=== PATIENT | female | born 1965 | race Caucasian/White ===

== ENCOUNTER 2016-08-04 23:32 | Emergency (ER) | payer SELFPAY ==
--- NOTE | 2016-08-05 01:30 | ED ORDER SUMMARY ---
..... Patient: BENNY MARC OrderSheet [facility] VisitID: [id number] [place] [address] 51y, F Registration Date/Time: 08/04/2016 ORDER SHEET Weight: 79.3 kg Allergies: No Known Drug Allergy GENERAL ORDERS: EKG - ER Stat (00:05 08/05/2016 EInderbitzen R.N. verbal order read back to Cirilo Coyne) (0:07 CHagerty ER Lens Dotter) Chest 2V Urgent (00:07 08/05/2016 Cirilo Coyne) (Ack 0:14 CHagerty ER Lens Dotter) (0:23 GUnger) Hooker Off (Continuous) (CP) (00:08 08/05/2016 Cirilo Coyne) (Ack 0:14 CHagerty ER Lens Dotter) (0:28 EInderbitzen R.N.) CBC w Diff Urgent (00:08/05/2016 Cirilo Coyne) (Ack 0:14 CHagerty ER Lens Dotter) (0:28 EInderbitzen R.N.) CMP Urgent (00:08/05/2016 Cirilo Coyne) (Ack 0:14 CHagerty ER Lens Dotter) (0:28 EInderbitzen R.N.) UA-Culture if indicated Urgent (00:08/05/2016 Cirilo Coyne) (Ack 0:14 CHagerty ER Lens Dotter) PT with INR Urgent (00:08/05/2016 Cirilo Coyne) (Ack 0:14 CHagerty ER Lens Dotter) (0:28 EInderbitzen R.N.) D-Dimer Urgent (00:08/05/2016 Cirilo Coyne) (Ack 0:14 CHagerty ER Lens Dotter) (0:28 EInderbitzen R.N.) Troponin-I Urgent (00:08/05/2016 Cirilo Coyne) (Ack 0:14 CHagerty ER Lens Dotter) (0:28 EInderbitzen R.N.) Lipase Urgent (00:08/05/2016 Cirilo Coyne) (Ack 0:14 CHagerty ER Lens Dotter) (0:28 EInderbitzen R.N.) Pulse oximeter (00:09 08/05/2016 Cirilo Coyne) (Ack 0:14 CHagerty ER Lens Dotter) (0:28 EInderbitzen R.N.) MEDICATION ORDERS: GI Cocktail WHITE PO 30 mL (NOW) (00:08 08/05/2016 Cirilo Coyne) (0:18 EInderbitzen R.N.) Aspirin PO 325 mg (Do not crush or chew, NOW) (01:23 08/05/2016 Cirilo Coyne) (Ack 1:24 RCollier R.N.) (1:29 RCollier R.N.) NitroGLYCERIN SL 0.2 mg (once now) (01:35 08/05/2016 Cirilo Coyne) (Ack 1:36 RCollier R.N.) (2:25 RCollier R.N.) IV FLUIDS: Zofran IV 4 mg (NOW) (00:08 08/05/2016 Cirilo Coyne) (0:17 EInderbitzen R.N.) IV Saline Lock (00:09 08/05/2016 Cirilo Coyen) (0:19 EInderbitzen R.N.) ORDER SHEET NOTES: [Electronically signed by Ariadna Roman R.N. (02:08/05/2016)] [Electronically signed by Paul Molina Dr. (17:19 08/08/2016)] [Electronically locked/signed by Ariadna Roman R.N. (08/05/2016)]
--- NOTE | 2016-08-05 01:30 | ED NURSING NOTES ---
Clinical Report - Nurses [facility] [address] [place] [address] 08/04/2016 23:32 Patient: BENNY MARC TRIAGE Triage time 23:38 Aug 04 2016. Acuity: LEVEL 3. Chief Complaint: (short of breath, chest tightness, right subcostal pain). 23:38 08/04/16. STANLEY COMA SCORE: Stanley Coma Scale: 15- eyes open spontaneously (4); best verbal response- oriented x 4 (5); best motor response- obeys commands (6). --23:43 Minna Pop R.N. 23:38 08/04/16. BP: 146/83. HR: 72. RR: 22. O2 saturation: 100%. Temp: 98.2 F. Pain level now: 01/17. --23:43 Minna Pop R.N. Weight: 79.3 kg. Height/Length: 66 inches Per Patient. BMI: 28.2. --23:37 Minna Pop R.N. Medications Albuterol Sulfate HFA Inhalation. --23:40 Minna Pop R.N. Motrin. --23:41 Minna Pop R.N. Medication/allergy information source: the patient. --23:43 Minna Pop R.N. Allergies No Known Drug Allergy. --23:40 Minna Pop R.N. History Arrived by private vehicle. Historian: patient. Accompanied by family. Onset. (a few days, worse tonight). She has had difficulty breathing. No fever, weakness or cough. Denies muscle aches. Treatment ORDERING BOX OPERATOR: None. PAST MEDICAL HX: Immunizations: seasonal influenza. Last normal menstrual period now. SOCIAL HX: Smoker- current status unknown (cigarette). Occasional alcohol use. No drug use. ABUSE ASSESSMENT: No report of abuse. SELF HARM ASSESSMENT: A self harm assessment was performed. The patient answered "no" to the question "Have you recently felt down, depressed, or hopeless?", "Have you noticed less interest or pleasure in doing things?", "Do you have thoughts of harming or killing yourself?", "Are you here because you tried to hurt yourself?", "Have you ever tried to hurt yourself before today?", "Have you recently had thoughts about harming or killing others?" and "Do you have any dangerous items in your possession?". --23:43 Minna Pop R.N. PROBLEMS: Abdominal Pain. Headache. Chronic Headache. Atypical Chest Pain. Cardiomegaly. Pulmonary Hypertension. Arthritis. --23:41 Minna Pop R.N. ADDITIONAL SURGERIES: . Lumpectomy of breast. --23:41 Minna Pop R.N. Interventions ID band on patient. --23:43 Minna Pop R.N. PHYSICAL ASSESSMENT 00:32 08/05/16. Ambulatory to room. GENERAL / NEURO / PSYCH: Alert. Oriented X 4. HEENT: Pupils equal, round and reactive to light. No facial asymmetry noted. Mucous membranes are pink. RESPIRATORY: Respirations not labored. Chest nontender. Breath sounds within normal limits. CVS: Normal sinus rhythm noted. Pulses within normal limits. GI / : Abdomen soft and nontender and normal bowel sounds. SKIN: Skin intact. Skin is warm and dry. Normal skin turgor. --00:32 Minna Pop R.N. NURSING PROGRESS NOTES 23:53 08/04/2016 Site #1 started via IV in the right antecubital space with an 20g angiocath, with aseptic technique; one attempt. Blood drawn: rainbow set. Labeled in the presence of the patient and sent to the lab. Saline lock flushed with 10 mL saline. --23:58 Minna Pop R.N. 23:57 08/04/16. The initial plan of care for this patient includes an assessment with efforts to address the presence of pain. This plan of care was discussed with the patient. monitoring analyst, pulse oximeter and NIBP monitor placed on patient; threat monitoring analyst- Lead II; monitor alarms on. Patient gowned. Two patient identifiers checked. Call light placed in reach. Side rails up x 1. Bed placed in lowest position. Brakes of bed on. Patient ready for evaluation. --23:57 Minna Pop R.N. EKG time: (2354 PM). EKG was ordered, performed by a tech and shown to the ED physician. --23:59 Elizabeth Dimas 00:15 08/05/2016 Zofran (Ondansetron HCl) IVP 4 mg given over 1 minute(s) via site #1. Allergies verified and confirmed 5 rights. IV patency established. IV site checked: no pain, redness, or swelling. IV flushed thoroughly pre- and post-medication administration. IVP given by RN. --00:17 Minna Pop R.N. 00:16 08/05/2016 GI COCKTAIL WHITE (Simethicone) PO Oral Suspension 30 mL given. Allergies verified and confirmed 5 rights. --00:18 Minna Pop R.N. 00:20 08/05/16. Patient transported to radiology by stretcher. (AND RETURNED). --00:20 Minna Pop R.N. 00:33 08/05/16. BP: 107/60. HR: 65. RR: 18. O2 saturation: 100%. Pain level now 5/10. --00:33 Minna Pop R.N. 00:33 08/05/16. Cardiac rhythm: normal sinus rhythm. monitoring analyst and NIBP monitor placed on patient; threat monitoring analyst- Lead II; monitor alarms on. Reassessment after medication administered. She has had no adverse reaction. Overall patient status is the same- she states feels the same. --00:33 Minna Pop R.N. Care transferred and report received. --01:25 Ariadna Roman R.N. 01:29 08/05/2016 Aspirin PO Tablets 325 mg given. Allergies verified and confirmed 5 rights. --01:29 Ariadna Roman R.N. 01:45- pt ambulates to restroom and back to bed. --01:48 Ariadna Roman R.N. The patient is calm and resting quietly. --01:58 Ariadna Roman R.N. 02:15 08/05/2016 Nitroglycerin SL Tablets 0.2 mg given. Allergies verified and confirmed 5 rights. --02:25 Ariadna Roman R.N. DISPOSITION / DISCHARGE 01:46 08/05/16. BP: 109/52. HR: 65. RR: 20. O2 saturation: 100%. Temp: deferred. Irizarry-Jamison pain scale: 10/18. --01:50 Ariadna Roman R.N. Report was given to a nurse in person. Report included patient's care, treatment, medications, reviewed medication reconcilliation, and condition (including any recent changes or anticipated changes). All questions were answered. Report was acknowledged and care was transferred. (transformation manager). --02:15 Ariadna Roman R.N. Report was given to a nurse via a phone call. Report included patient's care, treatment, medications, reviewed medication reconcilliation, and condition (including any recent changes or anticipated changes). All questions were answered. Report was acknowledged. (to [facility]). --02:24 Ariadna Roman R.N. Departure time: 02:25. --02:25 Ariadna Roman R.N. Locked/Released at 08/05/2016 2:26 by Ariadna Roman R.N.
--- NOTE | 2016-08-05 01:30 | ED CLINICAL REPORT ---
Clinical Report - Physicians/Mid Levels [facility] [address] [place] [address] 08/04/2016 23:32 Patient: BENNY MARC Arrived- By private vehicle. Historian- patient. HISTORY OF PRESENT ILLNESS Chief Complaint: CHEST PAIN. At its maximum, severity described as moderate. When seen in the E.D., severity described as moderate. Modifying factors- worsened by deep breaths. Not worsened by exertion. Not relieved by anything. This started past few days and is still present and worsening. It was abrupt in onset and has been intermittent but is not gone now. It is described as tightness and it is described as located in the right chest and central chest area and radiating to the jaw and chest. The patient has had nausea. No vomiting, difficulty breathing or diaphoresis. (hx of pulmonary HTN. Reports no hx of hemoptysis, leg swelling, hx of DVT/PE, recent trauma or hormone replacement.). Similar symptoms previously: None. Recent medical care: Not recently seen/assessed. REVIEW OF SYSTEMS No fever, chills, pedal edema, calf pain or fainting episodes. No headache or sore throat. All systems otherwise negative, except as recorded above. PAST HISTORY See nurses notes. SOCIAL HISTORY Smoker- current status unknown. No alcohol use or drug use. Is a local resident. FAMILY HISTORY History of heart disease in first-degree relative (mother and sibling). ADDITIONAL NOTES The nursing notes have been reviewed. PHYSICAL EXAM Vital Signs: 08/04/2016 23:38 BP: 146/83. HR: 72. RR: 22. O2 saturation: 100%. Temp: 98.2 F. Pain level now: 7/10. Blood pressure normal. Oxygen saturation normal. Appearance: Alert. Oriented X3. No acute distress. Eyes: Pupils equal, round and reactive to light. Eyes normal inspection. ENT: Ears normal. Nose normal. Pharynx normal. Neck: Normal inspection. Neck supple. CVS: Normal heart rate and rhythm. Heart sounds normal. Pulses normal. Respiratory: No respiratory distress. Breath sounds normal. Chest nontender. No rales, rhonchi or wheezes. Abdomen: Soft and nontender. Bowel sounds normal. Back: Normal external inspection. Skin: Skin warm and dry. Normal skin color. No rash. Normal skin turgor. Extremities: Extremities exhibit normal ROM. No lower extremity edema. LABS, X-RAYS, AND EKG EKG: No acute process. No acute ischemia. Normal EKG. Normal sinus rhythm. Rate: 72. Normal P waves. Normal CIARAN. Normal QRS complex. Normal axis. Normal ST and T waves, QT and QTc. The study has been interpreted contemporaneously by me. The study has been independently viewed by me. The EKG appears to be a good tracing. Chest X-ray: No acute disease. Normal lung markings present. Normal heart size. No infiltrate. Views: PA and lateral. The X-rays were independently viewed by me and interpreted contemporaneously by me. Laboratory Tests: CBC w Diff: (ALBIN: 08/05/2016 00:09) ( [facility] 08/05/2016 00:14) Final results Test Result Flag Units (Reference) WHITE BLOOD COUNT 8.0 K/uL (4.5-11.5) RED BLOOD COUNT 4.41 M/uL (4.00-5.20) HEMOGLOBIN 13.7 gm/dL (12.0-16.0) HEMATOCRIT 41.4 % (36.0-46.0) MEAN CELL VOLUME 94 fL (80-100) MEAN CORPUSCULAR HGB 31 pg (26-34) MEAN CORPUSCULAR HGB CONC 33 g/dL (31-37) RED CELL DISTRIBUTION WIDTH 12.4 % (11.6-14.8) PLATELET COUNT 221 K/uL (150-400) NEUTROPHIL % 49.3 L % (50-75) LYMPH % 39.7 % (25-40) MONO % 9.0 % (3-14) EOSINOPHIL % 1.5 % (0-4) BASOPHIL % 0.5 % (0-2) PT with INR: (ALBIN: 08/05/2016 00:09) ( [facility] 08/05/2016 00:24) Final results Test Result Flag Units (Reference) INR 0.9 (0.8-1.2) Low Intensity Therapy: INR 1.5-2.0 PT range 18.5-23.1Mod.Intensity Therapy: INR 2.0-3.0 PT range 23.1-31.5High Intensity Therapy: INR 2.5-3.5 PT range 27.4-35.5High Intensity Therapy 2: INR 3.0-4.0 PT range 31.5-39.3 D-DIMER QUANTITATIVE 0.35 ug/mLFEU (0.27-0.52) The primary value of this quantitative assay relates toits negative predictive value (i.e. exclusion) of pulmonaryembolism/deep vein thrombosis/DIC.Elevated levels of d-dimer may also occur with:, age, cancer, inflammation, liver disease,post-op, infection, hematoma, coronary disease, peripheralarteriopathy, bleeding disorders and thrombolytic treatment.Results should be correlated with other clinical andradiological data.Testing Methodology: Latex Immunoassay CMP: (ALBIN: 08/05/2016 00:09) ( MsgRcvd 08/05/2016 00:51) Final results Test Result Flag Units (Reference) GLUCOSE 104 mg/dL (70-110) BUN 7 mg/dL (7-18) CREATININE 0.7 mg/dL (0.6-1.3) Estimated GFR >60 mL/min Estimated GFR- >60 mL/min Note: Persistent reduction over 3 months in eGFR<60 mL/min/1.73 m2 defines CKD. Patients with eGFR values>=60 mL/min/1.73 m2 may also have CKD if evidence ofpersistent proteinuria. Additional information may be foundat www.kidney.org. SODIUM 139 mmol/L (136-145) POTASSIUM 3.4 L mmol/L (3.5-5.1) CHLORIDE 104 mmol/L (98-107) CARBON DIOXIDE 28 mmol/L (21-32) CALCIUM 8.4 L mg/dL (8.5-10.1) TOTAL PROTEIN 6.5 g/dL (6.4-8.2) ALBUMIN 3.6 g/dL (3.3-5.0) BILIRUBIN, TOTAL 0.3 mg/dL (0.0-1.0) ALKALINE PHOSPHATASE 39 L U/L (46-116) AST (SGOT) 16 U/L (15-37) ALT (SGPT) 28 U/L (12-78) LIPASE 213 U/L (73-393) TROPONIN I 0.11 ng/mL (0.00-1.5) TROPONIN REFERENCE RANGE:<0.1 NEGATIVE0.1-1.5 INDETERMINANT>1.5 POSITIVE . PROGRESS AND PROCEDURES Course of Care: the patient is a pleasant 51-year-old female with past medical history significant for high cholesterol, pulmonary hypertension, smoking, and family history of cardiac disease presenting for evaluation of chest pain. The patient is resting in bed and in no acute distress. Differential diagnosis at this time includes pulmonary embolism, acute myocardial infarction, pneumothorax, or thoracic aortic dissection. Patient will be evaluated with d-dimer, troponin, complete blood cell count, chest x-ray, EKG. Medication for her discomfort and nausea has been ordered. Patient is agreeable to the treatment and plan. Initial workup shows patient with normal EKG. Chest x-ray does not show any signs of acute consolidation or pneumothorax. Mediastinum is not widened. No apical capping. Blood work is still pending at this time. Blood work is remarkable for an indeterminate troponin at 0.11. Rest of the patient's workup is otherwise unremarkable. Potassium is slightly low at 3.4. No signs of EKG changes. White blood cell count and a d-dimer noted to be normal. With normal d-dimer, do not feel patient has pulmonary embolism or thoracic dissection. Spoke with cardiology about patient's indeterminant troponin and chest pain here in the emergency department. The patient will be transferred for further management and workup of her chest pain and indeterminate troponins. Had spoken to the hospitalist and cardiology over at [facility]. Appropriate bed and availability obtained. Informed written consent for transfer obtained. At the time of transfer, patient was stable. Vital signs are unremarkable. No further recommendations noted from cardiology. Because of the patient's indeterminant troponin, cardiology did recommend starting anticoagulation at this point in time. An aspirin has been given already. the patient was transferred without Complications. Critical care performed (70 minutes). Time is exclusive of separately billable procedures. Time includes: direct patient care, patient reassessment, coordination of patient care, interpretation of data (laboratory data and chest xrays), review of patient's medical records, medical consultation and documentation of patient care. Consult obtained from cardiology. (Electronically signed by Paul Molina Dr. 08/08/2016 17:19)
--- NOTE | 2016-08-05 01:30 | ED NURSING NOTES ---
Clinical Report - Nurses [facility] [address] [place] [address] 08/04/2016 23:32 Patient: BENNY MARC TRIAGE Triage time 23:38 Aug 04 2016. Acuity: LEVEL 3. Chief Complaint: (short of breath, chest tightness, right subcostal pain). 23:38 08/04/16. STANLEY COMA SCORE: Stanley Coma Scale: 15- eyes open spontaneously (4); best verbal response- oriented x 4 (5); best motor response- obeys commands (6). --23:43 Minna Pop R.N. 23:38 08/04/16. BP: 146/83. HR: 72. RR: 22. O2 saturation: 100%. Temp: 98.2 F. Pain level now: 01/17. --23:43 Minna Pop R.N. Weight: 79.3 kg. Height/Length: 66 inches Per Patient. BMI: 28.2. --23:37 Minna Pop R.N. Medications Albuterol Sulfate HFA Inhalation. --23:40 Minna Pop R.N. Motrin. --23:41 Minna Pop R.N. Medication/allergy information source: the patient. --23:43 Minna Pop R.N. Allergies No Known Drug Allergy. --23:40 Minna Pop R.N. History Arrived by private vehicle. Historian: patient. Accompanied by family. Onset. (a few days, worse tonight). She has had difficulty breathing. No fever, weakness or cough. Denies muscle aches. Treatment CHILDCARE DIRECTOR: None. PAST MEDICAL HX: Immunizations: seasonal influenza. Last normal menstrual period now. SOCIAL HX: Smoker- current status unknown (cigarette). Occasional alcohol use. No drug use. ABUSE ASSESSMENT: No report of abuse. SELF HARM ASSESSMENT: A self harm assessment was performed. The patient answered "no" to the question "Have you recently felt down, depressed, or hopeless?", "Have you noticed less interest or pleasure in doing things?", "Do you have thoughts of harming or killing yourself?", "Are you here because you tried to hurt yourself?", "Have you ever tried to hurt yourself before today?", "Have you recently had thoughts about harming or killing others?" and "Do you have any dangerous items in your possession?". --23:43 Minna Pop R.N. PROBLEMS: Abdominal Pain. Headache. Chronic Headache. Atypical Chest Pain. Cardiomegaly. Pulmonary Hypertension. Arthritis. --23:41 Minna Pop R.N. ADDITIONAL SURGERIES: . Lumpectomy of breast. --23:41 Minna Pop R.N. Interventions ID band on patient. --23:43 Minna Pop R.N. PHYSICAL ASSESSMENT 00:32 08/05/16. Ambulatory to room. GENERAL / NEURO / PSYCH: Alert. Oriented X 4. HEENT: Pupils equal, round and reactive to light. No facial asymmetry noted. Mucous membranes are pink. RESPIRATORY: Respirations not labored. Chest nontender. Breath sounds within normal limits. CVS: Normal sinus rhythm noted. Pulses within normal limits. GI / : Abdomen soft and nontender and normal bowel sounds. SKIN: Skin intact. Skin is warm and dry. Normal skin turgor. --00:32 Minna Pop R.N. NURSING PROGRESS NOTES 23:53 08/04/2016 Site #1 started via IV in the right antecubital space with an 20g angiocath, with aseptic technique; one attempt. Blood drawn: rainbow set. Labeled in the presence of the patient and sent to the lab. Saline lock flushed with 10 mL saline. --23:58 Minna Pop R.N. 23:57 08/04/16. The initial plan of care for this patient includes an assessment with efforts to address the presence of pain. This plan of care was discussed with the patient. recreation leader, pulse oximeter and NIBP monitor placed on patient; pipeline operator- Lead II; monitor alarms on. Patient gowned. Two patient identifiers checked. Call light placed in reach. Side rails up x 1. Bed placed in lowest position. Brakes of bed on. Patient ready for evaluation. --23:57 Minna Pop R.N. EKG time: (2354 PM). EKG was ordered, performed by a tech and shown to the ED physician. --23:59 Elizabeth Dimas 00:15 08/05/2016 Zofran (Ondansetron HCl) IVP 4 mg given over 1 minute(s) via site #1. Allergies verified and confirmed 5 rights. IV patency established. IV site checked: no pain, redness, or swelling. IV flushed thoroughly pre- and post-medication administration. IVP given by RN. --00:17 Minna Pop R.N. 00:16 08/05/2016 GI COCKTAIL WHITE (Simethicone) PO Oral Suspension 30 mL given. Allergies verified and confirmed 5 rights. --00:18 Minna Pop R.N. 00:20 08/05/16. Patient transported to radiology by stretcher. (AND RETURNED). --00:20 Minna Pop R.N. 00:33 08/05/16. BP: 107/60. HR: 65. RR: 18. O2 saturation: 100%. Pain level now 5/10. --00:33 Minna Pop R.N. 00:33 08/05/16. Cardiac rhythm: normal sinus rhythm. recreation leader and NIBP monitor placed on patient; pipeline operator- Lead II; monitor alarms on. Reassessment after medication administered. She has had no adverse reaction. Overall patient status is the same- she states feels the same. --00:33 Minna Pop R.N. Care transferred and report received. --01:25 Ariadna Roman R.N. 01:29 08/05/2016 Aspirin PO Tablets 325 mg given. Allergies verified and confirmed 5 rights. --01:29 Ariadna Roman R.N. 01:45- pt ambulates to restroom and back to bed. --01:48 Ariadna Roman R.N. The patient is calm and resting quietly. --01:58 Ariadna Roman R.N. 02:15 08/05/2016 Nitroglycerin SL Tablets 0.2 mg given. Allergies verified and confirmed 5 rights. --02:25 Ariadna Roman R.N. DISPOSITION / DISCHARGE 01:46 08/05/16. BP: 109/52. HR: 65. RR: 20. O2 saturation: 100%. Temp: deferred. Irizarry-Jamison pain scale: 10/18. --01:50 Ariadna Roman R.N. Report was given to a nurse in person. Report included patient's care, treatment, medications, reviewed medication reconcilliation, and condition (including any recent changes or anticipated changes). All questions were answered. Report was acknowledged and care was transferred. (string studies director). --02:15 Ariadna Roman R.N. Report was given to a nurse via a phone call. Report included patient's care, treatment, medications, reviewed medication reconcilliation, and condition (including any recent changes or anticipated changes). All questions were answered. Report was acknowledged. ([facility] --02:24 Ariadna Roman R.N. Departure time: 02:25. --02:25 Ariadna Roman R.N. Locked/Released at 08/05/2016 2:26 by Ariadna Roman R.N.
--- NOTE | 2016-08-05 01:30 | ED ORDER SUMMARY ---
..... Patient: BENNY MARC OrderSheet [facility] VisitID: [id number] [place] [address] 51y, F Registration Date/Time: 08/04/2016 ORDER SHEET Weight: 79.3 kg Allergies: No Known Drug Allergy GENERAL ORDERS: EKG - ER Stat (00:05 08/05/2016 EInderbitzen R.N. verbal order read back to Cirilo Coyne) (0:07 CHagerty ER Epitaxial Reactor Technician) Chest 2V Urgent (00:07 08/05/2016 Cirilo Coyne) (Ack 0:14 CHagerty ER Epitaxial Reactor Technician) (0:23 GUnger) Suit Maker (Continuous) (CP) (00:08 08/05/2016 Cirilo Coyne) (Ack 0:14 CHagerty ER Epitaxial Reactor Technician) (0:28 EInderbitzen R.N.) CBC w Diff Urgent (00:08/05/2016 Cirilo Coyne) (Ack 0:14 CHagerty ER Epitaxial Reactor Technician) (0:28 EInderbitzen R.N.) CMP Urgent (00:08/05/2016 Cirilo Coyne) (Ack 0:14 CHagerty ER Epitaxial Reactor Technician) (0:28 EInderbitzen R.N.) UA-Culture if indicated Urgent (00:08/05/2016 Cirilo Coyne) (Ack 0:14 CHagerty ER Epitaxial Reactor Technician) PT with INR Urgent (00:08/05/2016 Cirilo Coyne) (Ack 0:14 CHagerty ER Epitaxial Reactor Technician) (0:28 EInderbitzen R.N.) D-Dimer Urgent (00:08/05/2016 Cirilo Coyne) (Ack 0:14 CHagerty ER Epitaxial Reactor Technician) (0:28 EInderbitzen R.N.) Troponin-I Urgent (00:08/05/2016 Cirilo Coyne) (Ack 0:14 CHagerty ER Epitaxial Reactor Technician) (0:28 EInderbitzen R.N.) Lipase Urgent (00:08/05/2016 Cirilo Coyne) (Ack 0:14 CHagerty ER Epitaxial Reactor Technician) (0:28 EInderbitzen R.N.) Pulse oximeter (00:09 08/05/2016 Cirilo Coyne) (Ack 0:14 CHagerty ER Epitaxial Reactor Technician) (0:28 EInderbitzen R.N.) MEDICATION ORDERS: GI Cocktail WHITE PO 30 mL (NOW) (00:08 08/05/2016 Cirilo Coyne) (0:18 EInderbitzen R.N.) Aspirin PO 325 mg (Do not crush or chew, NOW) (01:23 08/05/2016 Cirilo Coyne) (Ack 1:24 RCollier R.N.) (1:29 RCollier R.N.) NitroGLYCERIN SL 0.2 mg (once now) (01:35 08/05/2016 Cirilo Coyne) (Ack 1:36 RCollier R.N.) (2:25 RCollier R.N.) IV FLUIDS: Zofran IV 4 mg (NOW) (00:08 08/05/2016 Cirilo Coyne) (0:17 EInderbitzen R.N.) IV Saline Lock (00:09 08/05/2016 Cirilo Coyne) (0:19 EInderbitzen R.N.) ORDER SHEET NOTES: [Electronically signed by Ariadna Roman R.N. (02:08/05/2016)] [Electronically signed by Paul Molina Dr. (17:19 08/08/2016)] [Electronically locked/signed by Ariadna Roman R.N. (08/05/2016)]
--- NOTE | 2016-08-05 06:45 | DIAGNOSTIC IMAGING REPORT ---
PROCEDURE: XR CHEST 2 VIEW INDICATION: CHEST PAIN, initial encounter TECHNIQUE: PA and lateral view. COMPARISON: None. FINDINGS: Lungs are clear. Cardiovascular structures are normal. Bony thorax is unremarkable. No significant interval change. IMPRESSION: 1. Negative chest.
--- NOTE | 2016-08-08 17:19 | ED MAR SUMMARY ---
..... Medication Administration Record [facility] [address] [place] [address] Patient: BENNY MARC Visit ID: [id number] 51y, F Weight: 79.3 kg Height/Length: 66 in BMI: 28.2 ALLERGIES: No Known Drug Allergy Given 00:15 08/05/2016 Minna Pop R.N. Medication Administered: ZOFRAN [IVP] (ONDANSETRON HCL), Dose: 4 mg IVP over 1 minute(s), Site: #1 right AC. Medication Ordered: Zofran IV 4 mg (NOW). Given 00:16 08/05/2016 Minna Pop R.N. Medication Administered: GI COCKTAIL WHITE [PO] (SIMETHICONE), Dose: 30 mL Oral Suspension PO. Medication Ordered: GI Cocktail WHITE PO 30 mL (NOW). Given 01:29 08/05/2016 Ariadna Roman R.N. Medication Administered: ASPIRIN [PO], Dose: 325 mg Tablets PO. Medication Ordered: Aspirin PO 325 mg (Do not crush or chew, NOW). Given 02:15 08/05/2016 Ariadna Roman R.NElliott Medication Administered: NITROGLYCERIN [SL], Dose: 0.2 mg Tablets SL. Medication Ordered: NitroGLYCERIN SL 0.2 mg (once now).
--- NOTE | 2016-08-08 17:19 | ED MED RECONCILIATION SUMMARY ---
Patient: BENNY MARC Medication Reconciliation Report [facility] VisitID: [id number] [address] [place] [address] 51y, F Registration Date/Time: 08/04/2016 Weight: 79.3 kg Height/Length: 66 in. BMI: 28.2 ALLERGIES: No Known Drug Allergy The patient's Home Medications are listed below: THE FOLLOWING MEDICATIONS NEED TO BE RECONCILED: Albuterol Sulfate HFA Inhalation Motrin The source(s) of the original Home Medication information: patient The following Medications were given to the patient in the Emergency Department: Zofran [IVP] IVP 4 mg, administered: 08/05/2016 12:15:00 AM GI COCKTAIL WHITE [PO] PO 30 mL, administered: 08/05/2016 12:16:00 AM Aspirin [PO] PO 325 mg, administered: 08/05/2016 1:29:00 AM Nitroglycerin [SL] SL 0.2 mg, administered: 08/05/2016 2:15:00 AM The following Medications were prescribed to the patient: None.
--- NOTE | 2016-08-08 17:19 | ED MAR SUMMARY ---
..... Medication Administration Record [facility] [address] [place] [place] [address] Patient: BENNY MARC Visit ID: [id number] 51y, F Weight: 79.3 kg Height/Length: 66 in BMI: 28.2 ALLERGIES: No Known Drug Allergy Given 00:15 08/05/2016 Minna Pop R.N. Medication Administered: ZOFRAN [IVP] (ONDANSETRON HCL), Dose: 4 mg IVP over 1 minute(s), Site: #1 right AC. Medication Ordered: Zofran IV 4 mg (NOW). Given 00:16 08/05/2016 Minna Pop R.N. Medication Administered: GI COCKTAIL WHITE [PO] (SIMETHICONE), Dose: 30 mL Oral Suspension PO. Medication Ordered: GI Cocktail WHITE PO 30 mL (NOW). Given 01:29 08/05/2016 Ariadna Roman R.N. Medication Administered: ASPIRIN [PO], Dose: 325 mg Tablets PO. Medication Ordered: Aspirin PO 325 mg (Do not crush or chew, NOW). Given 02:15 08/05/2016 Ariadna Roman R.NElliott Medication Administered: NITROGLYCERIN [SL], Dose: 0.2 mg Tablets SL. Medication Ordered: NitroGLYCERIN SL 0.2 mg (once now).
--- NOTE | 2016-08-08 17:19 | ED MED RECONCILIATION SUMMARY ---
Patient: BENNY MARC Medication Reconciliation Report [facility] VisitID: [id number] [address] [place] [address] 51y, F Registration Date/Time: 08/04/2016 Weight: 79.3 kg Height/Length: 66 in. BMI: 28.2 ALLERGIES: No Known Drug Allergy The patient's Home Medications are listed below: THE FOLLOWING MEDICATIONS NEED TO BE RECONCILED: Albuterol Sulfate HFA Inhalation Motrin The source(s) of the original Home Medication information: patient The following Medications were given to the patient in the Emergency Department: Zofran [IVP] IVP 4 mg, administered: 08/05/2016 12:15:00 AM GI COCKTAIL WHITE [PO] PO 30 mL, administered: 08/05/2016 12:16:00 AM Aspirin [PO] PO 325 mg, administered: 08/05/2016 1:29:00 AM Nitroglycerin [SL] SL 0.2 mg, administered: 08/05/2016 2:15:00 AM The following Medications were prescribed to the patient: None.
== END 2016-08-05 02:24 | disposition short-term general hospital (02) ==
LOC: ED SRH 23:32
DX: I20.0 Unstable angina (principal); R74.8 Abnormal levels of other serum enzymes; I10 Essential (primary) hypertension
CPT/HCPCS: 90100; 90616; 91556; 92235; 94060; 95059

== ENCOUNTER 2016-09-18 18:30 | Emergency (ER) | payer OTHER ==
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
--- NOTE | 2016-09-18 20:17 | ED ORDER SUMMARY ---
..... Patient: BENNY MARC OrderSheet [facility] VisitID: [id number] [address] [place] [address] 51y, F Registration Date/Time: 09/18/2016 ORDER SHEET Weight: 77.1 kg (stated) Allergies: No Known Drug Allergy GENERAL ORDERS: Cervical Spine 2 or 3V Urgent (19:15 09/18/2016 EKorolelyn P.A.-C) (Ack 19:16 LTapper) (19:58 RFay) Thoracic Spine 3V Urgent (19:15 09/18/2016 EKoroleva P.A.-C) (Ack 19:16 LTapper) (19:58 RFay) MEDICATION ORDERS: IV FLUIDS: ORDER SHEET NOTES: [Electronically signed by Sarika FlowerAElliott-Mariano (20:32 09/18/2016)] [Electronically signed by Grady Null R.N. (21:30 09/18/2016)] [Electronically locked/signed by Grady Null R.N. (21:30 09/18/2016)]
--- NOTE | 2016-09-18 20:17 | ED ORDER SUMMARY ---
..... Patient: BENNY MARC OrderSheet [facility] VisitID: [id number] [address] [place] [address] 51y, F Registration Date/Time: 09/18/2016 ORDER SHEET Weight: 77.1 kg (stated) Allergies: No Known Drug Allergy GENERAL ORDERS: Cervical Spine 2 or 3V Urgent (19:15 09/18/2016 EKorolelyn P.A.-C) (Ack 19:16 LTapper) (19:58 RFay) Thoracic Spine 3V Urgent (19:15 09/18/2016 EKoroleva P.A.-C) (Ack 19:16 LTapper) (19:58 RFay) MEDICATION ORDERS: IV FLUIDS: ORDER SHEET NOTES: [Electronically signed by Sarika FlowerAElliott-Mariano (20:32 09/18/2016)] [Electronically signed by Grady Null R.N. (21:30 09/18/2016)] [Electronically locked/signed by Grady Null R.N. (21:30 09/18/2016)]
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
--- NOTE | 2016-09-18 21:31 | ED MED RECONCILIATION SUMMARY ---
Patient: BENNY MARC Medication Reconciliation Report [facility] VisitID: [id number] [address] [place] [address] 51y, F Registration Date/Time: 09/18/2016 Weight: 77.1 kg Height/Length: 66 in. BMI: 27.4 ALLERGIES: No Known Drug Allergy The patient's Home Medications are listed below: THE FOLLOWING MEDICATIONS NEED TO BE RECONCILED: Albuterol Sulfate HFA Inhalation 2 puffs, daily Ibuprofen Oral 400 mg, daily Multivitamins Oral 1 pill The source(s) of the original Home Medication information: patient The following Medications were given to the patient in the Emergency Department: None. The following Medications were prescribed to the patient: Take OTC medications according to label instructions. Available over the counter. -- Sarika Flower, P.A.-C Acetaminophen (available over the counter): take according to label instructions. -- Sarika Flower, P.A.-C Motrin (available over the counter): take according to label instructions. -- Sarika Flower, P.A.-C
--- NOTE | 2016-09-18 21:31 | ED MAR SUMMARY ---
..... Medication Administration Record [facility] [address] [place], [place] [id number] Patient: BENNY MARC Visit ID: [id number] 51y, F Weight: 77.1 kg Height/Length: 66 in BMI: 27.4 ALLERGIES: No Known Drug Allergy
--- NOTE | 2016-09-18 21:31 | ED MAR SUMMARY ---
..... Medication Administration Record [facility] [address] [place] [place] [id number] Patient: BENNY MARC Visit ID: [id number] 51y, F Weight: 77.1 kg Height/Length: 66 in BMI: 27.4 ALLERGIES: No Known Drug Allergy
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
--- NOTE | 2016-09-18 21:31 | ED MED RECONCILIATION SUMMARY ---
Patient: BENNY MARC Medication Reconciliation Report [facility] VisitID: [id number] [address] [place] [address] 51y, F Registration Date/Time: 09/18/2016 Weight: 77.1 kg Height/Length: 66 in. BMI: 27.4 ALLERGIES: No Known Drug Allergy The patient's Home Medications are listed below: THE FOLLOWING MEDICATIONS NEED TO BE RECONCILED: Albuterol Sulfate HFA Inhalation 2 puffs, daily Ibuprofen Oral 400 mg, daily Multivitamins Oral 1 pill The source(s) of the original Home Medication information: patient The following Medications were given to the patient in the Emergency Department: None. The following Medications were prescribed to the patient: Take OTC medications according to label instructions. Available over the counter. -- Sarika Flower, P.A.-C Acetaminophen (available over the counter): take according to label instructions. -- Sarika Flower, P.A.-C Motrin (available over the counter): take according to label instructions. -- Sarika Flower, P.A.-C
== END 2016-09-18 20:35 | disposition home or self-care (01) ==
LOC: ED SRH 18:30
DX: S16.1XXA Strain of muscle, fascia and tendon at neck level, initial encounter (principal); V43.52XA Car driver injured in collision with other type car in traffic accident, initial encounter; Y93.89 Activity, other specified; Y99.8 Other external cause status; Y92.410 Unspecified street and highway as the place of occurrence of the external cause

== ENCOUNTER 2016-10-31 07:51 | Emergency (ER) | payer SELFPAY ==
--- NOTE | 2016-10-31 09:02 | ED ORDER SUMMARY ---
..... Patient: BENNY MARC OrderSheet [facility] VisitID: [id number] [address] [place] [address] 51y, F Registration Date/Time: 10/31/2016 ORDER SHEET Weight: 77.1 kg (stated) Allergies: No Known Drug Allergy GENERAL ORDERS: CT Head wo Cont Urgent (08:02 10/31/2016 Cirilo Coyne) (Cancelled: Physician Order8:11 Robi R.N.) Pulse oximeter (08:12 10/31/2016 Cirilo Coyne) (8:16 SReitz R.N.) MEDICATION ORDERS: Phenergan IV 25 mg (HIGH ALERT MEDICATION, NOW) (08:11 10/31/2016 Cirilo Coyne) (Ack 8:16 SReitz R.N.) (8:36 SReitz R.N.) IV FLUIDS: IV NS : initial bolus 1000 mL (1000 mL/hr), then none - for X1 (NOW) (08:11 10/31/2016 Cirilo Coyne) (Ack 8:16 SReitz R.N.) (8:30 SReitz R.N.) Benadryl IV 25 mg (NOW) (08:11 10/31/2016 Cirilo Coyne) (Ack 8:16 SReitz R.N.) (8:31 SReitz R.N.) Decadron IV 10 mg (NOW) (08:11 10/31/2016 Cirilo Coyne) (Ack 8:16 SReitz R.N.) (8:33 SReitz R.N.) Toradol IV 30 mg (NOW) (08:12 10/31/2016 Cirilo Coyne) (Ack 8:16 SReitz R.N.) (8:32 SReitz R.N.) Morphine IV 4 mg (HIGH ALERT MEDICATION, NOW) (09:20 10/31/2016 Cirilo Coyne) (10:00 KWillijade R.N.) ORDER SHEET NOTES: [Electronically signed by Crystal Morales R.N. (11:17 10/31/2016)] [Electronically signed by Paul Molina Dr. (04:49 11/07/2016)] [Electronically locked/signed by Crystal Morales R.N. (11:17 10/31/2016)]
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
--- NOTE | 2016-10-31 09:02 | ED ORDER SUMMARY ---
..... Patient: BENNY MARC OrderSheet [facility]erg[facility] VisitID: [id number] [address] [place] [address] 51y, F Registration Date/Time: 10/31/2016 ORDER SHEET Weight: 77.1 kg (stated) Allergies: No Known Drug Allergy GENERAL ORDERS: CT Head wo Cont Urgent (08:02 10/31/2016 Cirilo Coyne) (Cancelled: Physician Order8:11 Robi R.N.) Pulse oximeter (08:12 10/31/2016 Cirilo Coyne) (8:16 SReitz R.N.) MEDICATION ORDERS: Phenergan IV 25 mg (HIGH ALERT MEDICATION, NOW) (08:11 10/31/2016 Cirilo Coyne) (Ack 8:16 SReitz R.N.) (8:36 SReitz R.N.) IV FLUIDS: IV NS : initial bolus 1000 mL (1000 mL/hr), then none - for X1 (NOW) (08:11 10/31/2016 Cirilo Coyne) (Ack 8:16 SReitz R.N.) (8:30 SReitz R.N.) Benadryl IV 25 mg (NOW) (08:11 10/31/2016 Cirilo Coyne) (Ack 8:16 SReitz R.N.) (8:31 SReitz R.N.) Decadron IV 10 mg (NOW) (08:11 10/31/2016 Cirilo Coyne) (Ack 8:16 SReitz R.N.) (8:33 SReitz R.N.) Toradol IV 30 mg (NOW) (08:12 10/31/2016 Cirilo Coyne) (Ack 8:16 SReitz R.N.) (8:32 SReitz R.N.) Morphine IV 4 mg (HIGH ALERT MEDICATION, NOW) (09:20 10/31/2016 Cirilo Coyne) (10:00 KWillijade R.N.) ORDER SHEET NOTES: [Electronically signed by Crystal Morales R.N. (11:17 10/31/2016)] [Electronically signed by Paul Molina Dr. (04:49 11/07/2016)] [Electronically locked/signed by Crystal Morales R.N. (11:17 10/31/2016)]
--- NOTE | 2016-10-31 09:02 | ED CLINICAL REPORT ---
Clinical Report - Physicians/Mid Levels [facility] [address] [place] [address] 10/31/2016 7:54 Patient: BENNY MARC Time Seen: 1801. Arrived- By private vehicle. Historian- patient. HISTORY OF PRESENT ILLNESS Is still present and worsening. (reached highest intensity a few hours ago). Chief Complaint: HEADACHE. This started past few days. It was abrupt in onset and has been constant but is not gone now. Patient was last known well (several days ago). It is described as similar to previous headaches and sharp. Located in the left parietal region. No neck pain. Not located in the facial region. At its maximum, severity described as severe. When seen in the E.D., severity described as severe. Modifying factors: worsened by bright light and noise. The patient has had nausea and vomiting. No preceding symptoms, blurred vision, photophobia, numbness or weakness. No recent travel. Similar symptoms previously: Many times. Recent medical care: Not recently seen/assessed. REVIEW OF SYSTEMS No fever, chest pain, difficulty breathing, abdominal pain or skin rash. All systems otherwise negative, except as recorded above. PAST HISTORY See nurses notes. Medications: TraMADol HCl Oral 50 mg, daily. Cyclobenzaprine HCl Oral 10 mg, as needed. Albuterol Sulfate Inhalation. Allergies: No Known Drug Allergy. SOCIAL HISTORY Never smoker. Occasional alcohol use. No drug use. No recent travel. Is a local resident. FAMILY HISTORY History of migraine headaches. ADDITIONAL NOTES The nursing notes have been reviewed. PHYSICAL EXAM Vital Signs: 10/31/2016 07:59 BP: 155/72. HR: 64. RR: 16. O2 saturation: 100%. Temp: 97.9 F. Pain level now: 10/10. Oxygen saturation normal. Appearance: Alert. Patient in mild distress. (non toxic). Eyes: Pupils equal, round and reactive to light. Eyes normal inspection. (no papilledema. Normal appearing retinal vasculature.). ENT: Ears normal. Nose normal. Pharynx normal. Neck: Normal inspection. Neck supple. No meningeal signs. CVS: Normal heart rate and rhythm. Heart sounds normal. Pulses normal. Respiratory: No respiratory distress. Breath sounds normal. Abdomen: Soft and nontender. No organomegaly. Skin: Skin warm and dry. Normal skin color. No rash. Normal skin turgor. Extremities: Extremities exhibit normal ROM. No lower extremity edema. Neuro: Oriented X 3. Alert. Mood/affect normal. Speech normal. Cranial nerves normal (as tested). No cerebellar findings. No motor deficit. No sensory deficit. Reflexes normal. PROGRESS AND PROCEDURES Course of Care: negative head CT scan on 02/12/2015 Patient is a pleasant 51 yo female with past medical history significant for migraines presenting for evaluation of headache. Patient as been evaluated for SAH, increased ICP, meningitis, and space occupying lesion. Patients exam and history are not consistent with these entities. particularly given the headache has been on going for greater than a day and symptoms reached maximal intensity > an hour Patient is agreeable to treatment for headache. Medications have been ordered after reviewing allergies and intolerances. Patient will be reevaluated after the medications have been given. Patient was reevaluated and found to be significantly improved. Patient reports being able to return home and follow up with doctor. Repeat examination continues to be benign. I discussed with the patient workup, diagnosis, home care, follow-up, and return precautions. All questions have been answered. The patient expressed understanding of these instructions and was agreeable to them. Do not feel patient needs to be admitted to the hospital or require further ED workup/evaluation. Disposition: Discharged. Condition: good. CLINICAL IMPRESSION Moderate nausea with vomiting (acute). Acute headache (Generalized). INSTRUCTIONS Warnings: GENERAL WARNINGS: Return or contact your physician immediately if your condition worsens or changes unexpectedly, if not improving as expected, or if other problems arise. SPECIFICALLY, return if you develop fever, vomiting, numbness, weakness, difficulty thinking, visual disturbances, fainting or extreme fatigue. Your Current Medications: CONTINUE TAKING THE FOLLOWING MEDICATIONS: Albuterol Sulfate Inhalation. Cyclobenzaprine HCl Oral : 10 mg, prn. TraMADol HCl Oral : 50 mg daily. Prescription Medications: Zofran (orally disintegrating tablets) 4 mg: take 1 orally every 8 hours as needed for nausea and vomiting. Dispense ten (10). No refill. Substitution is permissible. Fioricet: take 1 orally every 6 hours as needed for pain or headache. Dispense twenty (20). No refills. Substitution is permissible. Follow-up: Return to the emergency department as needed. Follow up with your doctor in three days. Reason for referral: recheck today's concerns. Summary of care provided to patient via paper. Screening today revealed the patient's blood pressure to be in the normal range. The patient should follow up with a primary care provider for blood pressure management. Understanding of the discharge instructions verbalized by patient. (Electronically signed by Paul Molina Dr. 11/07/2016 4:49)
--- NOTE | 2016-11-07 04:49 | ED MED RECONCILIATION SUMMARY ---
Patient: BENNY MARC Medication Reconciliation Report [facility] VisitID: [id number] [address] [place] [address] 51y, F Registration Date/Time: 10/31/2016 Weight: 77.1 kg Height/Length: 66 in. BMI: 27.4 ALLERGIES: No Known Drug Allergy The patient's Home Medications are listed below: CONTINUE TAKING THE FOLLOWING MEDICATIONS: Albuterol Sulfate Inhalation Cyclobenzaprine HCl Oral 10 mg TraMADol HCl Oral 50 mg, daily The source(s) of the original Home Medication information: Not obtained. The following Medications were given to the patient in the Emergency Department: IV NS IV Fluids bolus 0, then 1000 mL/hr, administered: 10/31/2016 8:28:00 AM Benadryl [IVP] IVP 25 mg, administered: 10/31/2016 8:29:00 AM Toradol [IVP] IVP 30 mg, administered: 10/31/2016 8:30:00 AM Decadron [IVP] IVP 10 mg, administered: 10/31/2016 8:31:00 AM PHENERGAN [IVP] IVP 25 mg, administered: 10/31/2016 8:34:00 AM Morphine [IVP] IVP 4 mg, administered: 10/31/2016 9:55:00 AM The following Medications were prescribed to the patient: Zofran (orally disintegrating tablets) 4 mg: take 1 orally every 8 hours as needed for nausea and vomiting. Dispense ten (10). No refill. Substitution is permissible. -- Paul Molina Dr. Fioricet: take 1 orally every 6 hours as needed for pain or headache. Dispense twenty (20). No refills. Substitution is permissible. -- Paul Molina Dr.
--- NOTE | 2016-11-07 04:49 | ED MAR SUMMARY ---
..... Medication Administration Record [facility] [address] [address] [place] [address] Patient: BENNY MARC Visit ID: [id number] 51y, F Weight: 77.1 kg Height/Length: 66 in BMI: 27.4 ALLERGIES: No Known Drug Allergy Start 08:28 10/31/2016 Manasa Guillermo R.N., Stop 10:02 10/31/2016 Crystal Morales R.N. Medication Administered: IV NS (SALINE), Dose: IV Fluids over 1 hour(s), Rate: 1000 mL/hr, Dispensed: 1000 mL bag, Site: #1. Medication Ordered: IV NS : initial bolus 1000 mL (1000 mL/hr), then none - for X1 (NOW). Given 08:29 10/31/2016 Manasa Guillermo R.N. Medication Administered: BENADRYL [IVP] (DIPHENHYDRAMINE HCL), Dose: 25 mg IVP over 1 minute(s), Site: #1. Medication Ordered: Benadryl IV 25 mg (NOW). Given 08:30 10/31/2016 Manasa Guillermo R.N. Medication Administered: TORADOL [IVP], Dose: 30 mg IVP over 1 minute(s), Site: #1. Medication Ordered: Toradol IV 30 mg (NOW). Given 08:31 10/31/2016 Manasa Guillermo R.N. Medication Administered: DECADRON [IVP], Dose: 10 mg IVP over 2 minute(s), Site: #1. Medication Ordered: Decadron IV 10 mg (NOW). Given 08:34 10/31/2016 Manasa Guillermo R.N. Medication Administered: PHENERGAN [IVP] (PROMETHAZINE HCL), Dose: 25 mg IVP over 3 minute(s), Site: #1. Medication Ordered: Phenergan IV 25 mg (HIGH ALERT MEDICATION, NOW). Given 09:55 10/31/2016 Crystal Morales R.N. Medication Administered: MORPHINE [IVP], Dose: 4 mg IVP over 2.5 minute(s), Site: #1. Medication Ordered: Morphine IV 4 mg (HIGH ALERT MEDICATION, NOW).
--- NOTE | 2016-11-07 04:49 | ED MAR SUMMARY ---
..... Medication Administration Record [facility] [address] [place] [address] Patient: BENNY MARC Visit ID: [id number] 51y, F Weight: 77.1 kg Height/Length: 66 in BMI: 27.4 ALLERGIES: No Known Drug Allergy Start 08:28 10/31/2016 Manasa Guillermo R.N., Stop 10:02 10/31/2016 Crystal Morales R.N. Medication Administered: IV NS (SALINE), Dose: IV Fluids over 1 hour(s), Rate: 1000 mL/hr, Dispensed: 1000 mL bag, Site: #1. Medication Ordered: IV NS : initial bolus 1000 mL (1000 mL/hr), then none - for X1 (NOW). Given 08:29 10/31/2016 Manasa Guillermo R.N. Medication Administered: BENADRYL [IVP] (DIPHENHYDRAMINE HCL), Dose: 25 mg IVP over 1 minute(s), Site: #1. Medication Ordered: Benadryl IV 25 mg (NOW). Given 08:30 10/31/2016 Manasa Guillermo R.N. Medication Administered: TORADOL [IVP], Dose: 30 mg IVP over 1 minute(s), Site: #1. Medication Ordered: Toradol IV 30 mg (NOW). Given 08:31 10/31/2016 Manasa Guillermo R.N. Medication Administered: DECADRON [IVP], Dose: 10 mg IVP over 2 minute(s), Site: #1. Medication Ordered: Decadron IV 10 mg (NOW). Given 08:34 10/31/2016 Manasa Guillermo R.N. Medication Administered: PHENERGAN [IVP] (PROMETHAZINE HCL), Dose: 25 mg IVP over 3 minute(s), Site: #1. Medication Ordered: Phenergan IV 25 mg (HIGH ALERT MEDICATION, NOW). Given 09:55 10/31/2016 Crystal Morales R.N. Medication Administered: MORPHINE [IVP], Dose: 4 mg IVP over 2.5 minute(s), Site: #1. Medication Ordered: Morphine IV 4 mg (HIGH ALERT MEDICATION, NOW).
--- NOTE | 2016-11-07 04:49 | ED DISCHARGE INSTRUCTIONS ---
Patient: BENNY MARC General Instructions [facility] VisitID: [id number] [address] [place] [address] 51y, F Registration Date/Time: 10/31/2016 Moderate nausea with vomiting (acute). Acute headache (Generalized). INSTRUCTIONS Warnings: GENERAL WARNINGS: Return or contact your physician immediately if your condition worsens or changes unexpectedly, if not improving as expected, or if other problems arise. SPECIFICALLY, return if you develop fever, vomiting, numbness, weakness, difficulty thinking, visual disturbances, fainting or extreme fatigue. Your Current Medications: CONTINUE TAKING THE FOLLOWING MEDICATIONS: Albuterol Sulfate Inhalation. Cyclobenzaprine HCl Oral : 10 mg, prn. TraMADol HCl Oral : 50 mg daily. Prescription Medications: Zofran (orally disintegrating tablets) 4 mg: take 1 orally every 8 hours as needed for nausea and vomiting. Dispense ten (10). No refill. Substitution is permissible. Fioricet: take 1 orally every 6 hours as needed for pain or headache. Dispense twenty (20). No refills. Substitution is permissible. Follow-up: Return to the emergency department as needed. Follow up with your doctor in three days. Reason for referral: recheck today's concerns. Summary of care provided to patient via paper. Screening today revealed the patient's blood pressure to be in the normal range. The patient should follow up with a primary care provider for blood pressure management. Understanding of the discharge instructions verbalized by patient. ADDITIONAL INFORMATION Headache [Unspecified] The cause of your headache today is not clear, but it does not appear to be the sign of any serious illness. Under stress, some people tense the muscles of their shoulder, neck and scalp without knowing it. If this condition lasts long enough, a TENSION HEADACHE can occur. A MIGRAINE HEADACHE is caused by changes in blood flow to the brain. A migraine attack may be triggered by emotional stress, hormone changes during the menstrual cycle, oral contraceptives, alcohol use, certain foods containing tyramine, eye strain, weather changes, missing meals, lack of sleep or oversleeping. Other causes of headache include a viral illness with high fever, head injury with concussion, sinus, ear or throat infection, dental pain and TMJ (jaw joint) pain. More serious but less common causes of headache include stroke, brain hemorrhage, brain tumor, meningitis and encephalitis. Home Care: If you were given pain medicine for this headache, do not drive yourself home. Arrange for a ride, instead. When you get home, try to sleep. You should feel much better when you wake up. Apply heat to the back of your neck to relieve neck muscle spasm. Migraine headaches may respond best to an ice pack on the forehead or at the base of the skull. If you are having nausea or vomiting, follow a light diet until your headache is relieved. If you have a migraine type headache, use sunglasses when in the daylight or around bright indoor lighting until symptoms improve. Bright glaring light can worsen this kind of headache. Follow Up with your doctor if the headache is not better within the next 24 hours. If you have frequent headaches you should discuss a treatment plan with your primary care doctor. By being aware of the earliest signs of headache, and starting treatment right away, you may be able to stop the pain yourself. Get Prompt Medical Attention if any of the following occur: Worsening of your head pain or no improvement within 24 hours Repeated vomiting (unable to keep liquids down) Fever of 100.4F (38C) or higher, or as directed by your healthcare provider Stiff neck Extreme drowsiness, confusion or fainting Dizziness, vertigo (dizziness with spinning sensation) Weakness of an arm or leg or one side of the face Difficulty with speech or vision Ondansetron Oral disintegrating tablet What is this medicine? ONDANSETRON (on JAYLON se alka) is used to treat nausea and vomiting caused by chemotherapy. It is also used to prevent or treat nausea and vomiting after surgery. How should I use this medicine? These tablets are made to dissolve in the mouth. Do not try to push the tablet through the foil backing. With dry hands, peel away the foil backing and gently remove the tablet. Place the tablet in the mouth and allow it to dissolve, then swallow. While you may take these tablets with water, it is not necessary to do so. Talk to your tobacco checkout clerk regarding the use of this medicine in children. Special care may be needed. What side effects may I notice from receiving this medicine? Side effects that you should report to your doctor or health long term care social worker as soon as possible: allergic reactions like skin rash, itching or hives, swelling of the face, lips, or tongue breathing problems dizziness fast or irregular heartbeat feeling faint or lightheaded, falls fever and chills swelling of the hands and feet tightness in the chest Side effects that usually do not require medical attention (report to your doctor or health long term care social worker if they continue or are bothersome): constipation or diarrhea headache What may interact with this medicine? Do not take this medicine with any of the following medications: -apomorphine -cisapride -dofetilide -dronedarone -pimozide -thioridazine -ziprasidone This medicine may also interact with the following medications: -carbamazepine -phenytoin -rifampicin -tramadol -other medicines that prolong the QT interval (cause an abnormal heart rhythm) What if I miss a dose? If you miss a dose, take it as soon as you can. If it is almost time for your next dose, take only that dose. Do not take double or extra doses. Where should I keep my medicine? Keep out of the reach of children. Store between 2 and 30 degrees C (36 and 86 degrees F). Throw away any unused medicine after the expiration date. What should I tell my health care provider before I take this medicine? They need to know if you have any of these conditions: heart disease history of irregular heartbeat liver disease low levels of magnesium or potassium in the blood an unusual or allergic reaction to ondansetron, granisetron, other medicines, foods, dyes, or preservatives or trying to get breast-feeding What should I watch for while using this medicine? Check with your doctor or health long term care social worker as soon as you can if you have any sign of an allergic reaction. Butalbital, Acetaminophen, Caffeine Oral tablet What is this medicine? ACETAMINOPHEN; BUTALBITAL; CAFFEINE (a set a HERBERT susanna fen; byoo KAREN bi karen; KAF een) is a pain reliever. It is used to treat tension headaches. How should I use this medicine? Take this medicine by mouth with a full glass of water. Follow the directions on the prescription label. If the medicine upsets your stomach, take the medicine with food or milk. Do not take more than you are told to take. Talk to your tobacco checkout clerk regarding the use of this medicine in children. Special care may be needed. What side effects may I notice from receiving this medicine? Side effects that you should report to your doctor or health long term care social worker as soon as possible: allergic reactions like skin rash, itching or hives, swelling of the face, lips, or tongue breathing problems confusion feeling faint or lightheaded, falls redness, blistering, peeling or loosening of the skin, including inside the mouth seizure stomach pain yellowing of the eyes or skin Side effects that usually do not require medical attention (report to your doctor or health long term care social worker if they continue or are bothersome): constipation nausea, vomiting What may interact with this medicine? alcohol or medicines that contain alcohol antidepressants, especially MAOIs like isocarboxazid, phenelzine, tranylcypromine, and selegiline antihistamines benzodiazepines carbamazepine isoniazid medicines for pain like pentazocine, buprenorphine, butorphanol, nalbuphine, tramadol, and propoxyphene muscle relaxants naltrexone phenobarbital, phenytoin, and fosphenytoin phenothiazines like perphenazine, thioridazine, chlorpromazine, mesoridazine, fluphenazine, prochlorperazine, promazine, and trifluoperazine voriconazole What if I miss a dose? If you miss a dose, take it as soon as you can. If it is almost time for your next dose, take only that dose. Do not take double or extra doses. Where should I keep my medicine? Keep out of the reach of children. This medicine can be abused. Keep your medicine in a safe place to protect it from theft. Do not share this medicine with anyone. Selling or giving away this medicine is dangerous and against the law. Store at room temperature between 15 and 30 degrees C (59 and 86 degrees F). Keep container tightly closed. Protect from light. Throw away any unused medicine after the expiration date. What should I tell my health care provider before I take this medicine? They need to know if you have any of these conditions: drink more than 3 alcohol-containing drinks per day drug abuse or addiction heart or circulation problems kidney disease or problems going to the bathroom liver disease lung disease, asthma, or breathing problems porphyria an unusual or allergic reaction to acetaminophen, butalbital or other barbiturates, caffeine, other medicines, foods, dyes, or preservatives or trying to get breast-feeding What should I watch for while using this medicine? Tell your doctor or health long term care social worker if your pain does not go away, if it gets worse, or if you have new or a different type of pain. You may develop tolerance to the medicine. Tolerance means that you will need a higher dose of the medicine for pain relief. Tolerance is normal and is expected if you take the medicine for a long time. Do not suddenly stop taking your medicine because you may develop a severe reaction. Your body becomes used to the medicine. This does NOT mean you are addicted. Addiction is a behavior related to getting and using a drug for a non-medical reason. If you have pain, you have a medical reason to take pain medicine. Your doctor will tell you how much medicine to take. If your doctor wants you to stop the medicine, the dose will be slowly lowered over time to avoid any side effects. You may get drowsy or dizzy when you first start taking the medicine or change doses. Do not drive, use machinery, or do anything that may be dangerous until you know how the medicine affects you. Stand or sit up slowly. Do not take other medicines that contain acetaminophen with this medicine. Always read labels carefully. If you have questions, ask your doctor or pharmacist. If you take too much acetaminophen get medical help right away. Too much acetaminophen can be very dangerous and cause liver damage. Even if you do not have symptoms, it is important to get help right away. You have been given the following additional information: Headache, Unspecified Ondansetron Oral disintegrating tablet Butalbital, Acetaminophen, Caffeine Oral tablet (Electronically signed by Paul Molina Dr. 11/07/2016 4:49)
--- NOTE | 2016-11-07 04:49 | ED MED RECONCILIATION SUMMARY ---
Patient: BENNY MARC Medication Reconciliation Report [facility] VisitID: [id number] [address] [place] [address] 51y, F Registration Date/Time: 10/31/2016 Weight: 77.1 kg Height/Length: 66 in. BMI: 27.4 ALLERGIES: No Known Drug Allergy The patient's Home Medications are listed below: CONTINUE TAKING THE FOLLOWING MEDICATIONS: Albuterol Sulfate Inhalation Cyclobenzaprine HCl Oral 10 mg TraMADol HCl Oral 50 mg, daily The source(s) of the original Home Medication information: Not obtained. The following Medications were given to the patient in the Emergency Department: IV NS IV Fluids bolus 0, then 1000 mL/hr, administered: 10/31/2016 8:28:00 AM Benadryl [IVP] IVP 25 mg, administered: 10/31/2016 8:29:00 AM Toradol [IVP] IVP 30 mg, administered: 10/31/2016 8:30:00 AM Decadron [IVP] IVP 10 mg, administered: 10/31/2016 8:31:00 AM PHENERGAN [IVP] IVP 25 mg, administered: 10/31/2016 8:34:00 AM Morphine [IVP] IVP 4 mg, administered: 10/31/2016 9:55:00 AM The following Medications were prescribed to the patient: Zofran (orally disintegrating tablets) 4 mg: take 1 orally every 8 hours as needed for nausea and vomiting. Dispense ten (10). No refill. Substitution is permissible. -- Paul Molina Dr. Fioricet: take 1 orally every 6 hours as needed for pain or headache. Dispense twenty (20). No refills. Substitution is permissible. -- Paul Molina Dr.
== END 2016-10-31 10:14 | disposition home or self-care (01) ==
LOC: ED SRH 07:51
DX: R51 Headache (principal); R11.2 Nausea with vomiting, unspecified; I10 Essential (primary) hypertension; J45.909 Unspecified asthma, uncomplicated; Z79.899 Other long term (current) drug therapy

== ENCOUNTER 2016-11-02 08:30 | Outpatient (CLI) | payer OTHER ==
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
== END 2016-11-02 23:00 ==
LOC: MRI SRH 08:30
DX: R20.0 Anesthesia of skin (principal); M50.222 Other cervical disc displacement at C5-C6 level; M48.02 Spinal stenosis, cervical region